=== PATIENT | male | born 1980 | race Caucasian/White ===

== ENCOUNTER 2019-05-18 09:40 | Emergency (ER) | payer BC ==
[2019-05-18] MEDS ORDERED: Ketorolac 30 MG/ML SDV IVPUSH ONE (10:06)
--- NOTE | 2019-05-18 10:11 | EDM.PDOC ---
ED HPI GENERAL MEDICAL PROBLEM - General Chief Complaint: Abdominal Pain Stated Complaint: RT TESTICLE PAIN Time Seen by Provider: 05/18/19 09:57 Source of Information: Reports: Patient History Limitations: Reports: No Limitations - History of Present Illness INITIAL COMMENTS - FREE TEXT/NARRATIVE: HISTORY AND PHYSICAL: History of present illness: Patient is a 38-year-old male who presents to the ED today with concern of right testicular pain. Patient states he has had a hernia of the right testicle since he was in high school which with time has slowly been getting more painful. Patient states the pain of the hernia has worsened over the past several months and the past few weeks now he states that it is now more bothersome to him and the pain periodically radiates into his right lower leg and abdomen. Patient denies any trauma or injury to the testicles. Patient denies any penile discharge. Patient denies any other symptoms or concerns. Patient denies fever, chills, chest pain, shortness of breath, or cough. Denies headache, neck stiff ness, change in vision, syncope, or near syncope. Denies nausea, vomiting, abdominal pain, diarrhea, constipation, or dysuria. Has not noted any blood in urine or stool. Patient has been eating and drinking appropriately. Review of systems: As per history of present illness and below otherwise all systems reviewed and negative. Past medical history: As per history of present illness and as reviewed below otherwise noncontributory. Surgical history: As per history of present illness and as reviewed below otherwise noncontributory. Social history: See social history for further information Family history: As per history of present illness and as reviewed below otherwise noncontributory. Physical exam: General: Patient is alert, oriented, and in no acute distress. Patient sitting comfortably on exam table. HEENT: Atraumatic, normocephalic, pupils equal and reactive bilaterally, negative for conjunctival pallor or scleral icterus, mucous membranes moist, TMs normal bilaterally, throat clear, neck supple, nontender, trachea midline. No drooling or trismus noted. No meningeal signs. No hot potato voice noted. Lungs: Clear to auscultation, breath sounds equal bilaterally, chest nontender. Heart: S1S2, regular rate and rhythm without overt murmur Abdomen: Soft, nondistended, nontender. Negative for masses or hepatosplenomegaly. Negative for costovertebral tenderness. Pelvis: Stable nontender. Genitourinary: No rashes, lesions, or penile drainage. Left and right testicle without masses or pain and possible small hernia of the right inguinal canal with tenderness of this area. Rectal: Deferred. Skin: Intact, warm, dry. No lesions or rashes noted. Extremities: Atraumatic, negative for cords or calf pain. Neurovascular unremarkable. Neuro: Awake, alert, oriented. Cranial nerves II through XII unremarkable. Cerebellum unremarkable. Motor and sensory unremarkable throughout. Exam nonfocal. Notes: Discussed importance for follow-up with general surgery as well as his primary care provider. Voices understanding and is agreeable to plan of care. Denies any further questions or concerns at this time. Diagnostics: CBC, CMP, UA, gonorrhea and chlamydia, Scrotum and contents, CT pelvis Therapeutics: Toradol Prescription: None Impression: Right inguinal hernia, reduced Plan: 1. You can alternate ibuprofen and Tylenol as directed for pain and discomfort. 2. Follow-up with general surgery as well as a primary care provider as discussed. Return to the ED as needed and as discussed. Definitive disposition and diagnosis as appropriate pending reevaluation and review of above. Right Lower Groin Pain Score (Numeric/FACES): 7 - Related Data Allergies Allergy/AdvReac Type Severity Reaction Status Date / Time No Known Allergies Allergy Verified 05/18/19 09:54 Home Meds: Home Meds . [No Known Home Meds] 05/18/19 [History] Past Medical History Gastrointestinal History: Reports: Other (See Below) Other Gastrointestinal History: hernia Social & Family History - Family History Family Medical History: Noncontributory - Tobacco Use Smoking Status *Q: Current Every Day Smoker Years of Tobacco use: 18 Packs/Tins Daily: 1 - Recreational Drug Use Recreational Drug Use: Yes Drug Use in Last 12 Months: No ED ROS GENERAL - Review of Systems Review Of Systems: Comprehensive ROS is negative, except as noted in HPI. ED EXAM, GENERAL - Physical Exam Exam: See Below (see dictation) Course - Vital Signs Last Recorded V/S: Last Vital Signs Temp 98.6 F 05/18/19 12:53 Pulse 63 05/18/19 12:53 Resp 15 05/18/19 12:53 BP 119/67 05/18/19 12:53 Pulse Ox 95 05/18/19 12:53 - Orders/Labs/Meds Orders: Active Orders 24 hr Category Date Time Status CHLAMYDIA AND GONORRHEA BY TMA Stat Lab 05/18/19 11:48 Received Labs: Laboratory Tests 05/18/19 05/18/19 05/18/19 Range/Units 10:14 10:14 10:14 WBC 5.45 (4.0-11.0) K/uL RBC 4.84 (4.50-5.90) M/uL Hgb 14.5 (13.0-17.0) g/dL Hct 42.4 (38.0-50.0) % MCV 87.6 (80.0-98.0) fL MCH 30.0 (27.0-32.0) pg MCHC 34.2 (31.0-37.0) g/dL RDW Std Deviation 41.2 (28.0-62.0) fl RDW Coeff of Jovon 13 (11.0-15.0) % Plt Count 259 (150-400) K/uL MPV 10.60 (7.40-12.00) fL Neut % (Auto) 48.6 (48.0-80.0) % Lymph % (Auto) 38.0 (16.0-40.0) % [place] % (Auto) 11.7 (0.0-15.0) % Eos % (Auto) 1.5 (0.0-7.0) % Baso % (Auto) 0.2 (0.0-1.5) % Neut # (Auto) 2.7 (1.4-5.7) K/uL Lymph # (Auto) 2.1 (0.6-2.4) K/uL [place] # (Auto) 0.6 (0.0-0.8) K/uL Eos # (Auto) 0.1 (0.0-0.7) K/uL Baso # (Auto) 0.0 (0.0-0.1) K/uL Nucleated RBC % 0.0 /100WBC Nucleated RBCs # 0 K/uL Lactate 1.0 (0.20-2.00) mmol/L Sodium 141 (136-148) mmol/L Potassium 3.8 (3.5-5.1) mmol/L Chloride 104 (98-107) mmol/L Carbon Dioxide 27.3 (21.0-32.0) mmol/L BUN 11 (7.0-18.0) mg/dL Creatinine 0.8 (0.8-1.3) mg/dL Est Cr Clr Drug Dosing 118.75 mL/min Estimated GFR (MDRD) > 60.0 ml/min Glucose 91 (74-106) mg/dL Calcium 8.7 (8.5-10.1) mg/dL Total Bilirubin 0.4 (0.2-1.0) mg/dL AST 28 (15-37) IU/L ALT 35 (14-63) IU/L Alkaline Phosphatase 91 (46-116) U/L Total Protein 7.2 (6.4-8.2) g/dL Albumin 3.9 (3.4-5.0) g/dL Globulin 3.3 (2.6-4.0) g/dL Albumin/Globulin Ratio 1.2 (0.9-1.6) Urine Color Urine Appearance Urine pH (5.0-8.0) Ur Specific Ridott (1.001-1.035) Urine Protein (NEGATIVE) mg/dL Urine Glucose (UA) (NEGATIVE) mg/dL Urine Ketones (NEGATIVE) mg/dL Urine Occult Blood (NEGATIVE) Urine Nitrite (NEGATIVE) Urine Bilirubin (NEGATIVE) Urine Urobilinogen (<2.0) EU/dL Ur Leukocyte Esterase (NEGATIVE) 05/18/19 Range/Units 11:48 WBC (4.0-11.0) K/uL RBC (4.50-5.90) M/uL Hgb (13.0-17.0) g/dL Hct (38.0-50.0) % MCV (80.0-98.0) fL MCH (27.0-32.0) pg MCHC (31.0-37.0) g/dL RDW Std Deviation (28.0-62.0) fl RDW Coeff of Jovon (11.0-15.0) % Plt Count (150-400) K/uL MPV (7.40-12.00) fL Neut % (Auto) (48.0-80.0) % Lymph % (Auto) (16.0-40.0) % [place] % (Auto) (0.0-15.0) % Eos % (Auto) (0.0-7.0) % Baso % (Auto) (0.0-1.5) % Neut # (Auto) (1.4-5.7) K/uL Lymph # (Auto) (0.6-2.4) K/uL [place] # (Auto) (0.0-0.8) K/uL Eos # (Auto) (0.0-0.7) K/uL Baso # (Auto) (0.0-0.1) K/uL Nucleated RBC % /100WBC Nucleated RBCs # K/uL Lactate (0.20-2.00) mmol/L Sodium (136-148) mmol/L Potassium (3.5-5.1) mmol/L Chloride (98-107) mmol/L Carbon Dioxide (21.0-32.0) mmol/L BUN (7.0-18.0) mg/dL Creatinine (0.8-1.3) mg/dL Est Cr Clr Drug Dosing mL/min Estimated GFR (MDRD) ml/min Glucose (74-106) mg/dL Calcium (8.5-10.1) mg/dL Total Bilirubin (0.2-1.0) mg/dL AST (15-37) IU/L ALT (14-63) IU/L Alkaline Phosphatase (46-116) U/L Total Protein (6.4-8.2) g/dL Albumin (3.4-5.0) g/dL Globulin (2.6-4.0) g/dL Albumin/Globulin Ratio (0.9-1.6) Urine Color YELLOW Urine Appearance CLEAR Urine pH 6.0 (5.0-8.0) Ur Specific Ridott 1.010 (1.001-1.035) Urine Protein NEGATIVE (NEGATIVE) mg/dL Urine Glucose (UA) NEGATIVE (NEGATIVE) mg/dL Urine Ketones NEGATIVE (NEGATIVE) mg/dL Urine Occult Blood NEGATIVE (NEGATIVE) Urine Nitrite NEGATIVE (NEGATIVE) Urine Bilirubin NEGATIVE (NEGATIVE) Urine Urobilinogen 0.2 (<2.0) EU/dL Ur Leukocyte Esterase NEGATIVE (NEGATIVE) Meds: Medications Discontinued Medications Generic Name Dose Route Start Last Admin Trade Name Freq PRN Reason Stop Dose Admin Iopamidol 100 ml 05/18/19 11:41 05/18/19 11:41 Isovue Multipack-370 (76%) IVPUSH 05/18/19 11:42 100 ml ONETIME STA Administration Ketorolac Tromethamine 30 mg 05/18/19 10:06 05/18/19 10:20 Toradol IVPUSH 05/18/19 10:07 30 mg ONETIME ONE Administration Departure - Departure Time of Disposition: 13:13 Disposition: Home, Self-Care 01 Clinical Impression: Inguinal hernia, right - Discharge Information Referrals: PCP,None [Primary Care Provider] - Forms: ED Department Discharge Additional Instructions: The following information is given to patients seen in the emergency department who are being discharged to home. This information is to outline your options for follow-up care. We provide all patients seen in our emergency department with a follow-up referral. The need for follow-up, as well as the timing and circumstances, are variable depending upon the specifics of your emergency department visit. If you don't have a primary care physician on staff, we will provide you with a referral. We always advise you to contact your personal physician following an emergency department visit to inform them of the circumstance of the visit and for follow-up with them and/or the need for any referrals to a consulting specialist. The emergency department will also refer you to a specialist when appropriate. This referral assures that you have the opportunity for follow-up care with a specialist. All of these measure are taken in an effort to provide you with optimal care, which includes your follow-up. Under all circumstances we always encourage you to contact your private physician who remains a resource for coordinating your care. When calling for follow-up care, please make the office aware that this follow-up is from your recent emergency room visit. If for any reason you are refused follow-up, please contact the [facility] Emergency Department at and asked to speak to the emergency department charge nurse. [facility] [address] [address] [facility] [address] [place] [address] [facility] - General Surgery Professional Building [address] [place] [address], [address] [place] [address] 1. You can alternate ibuprofen and Tylenol as directed for pain and discomfort. 2. Follow-up with general surgery as well as a primary care provider as discussed. Return to the ED as needed and as discussed. Sepsis Event Note - Evaluation Sepsis Screening Result: No Definite Risk - Focused Exam Vital Signs: Vital Signs Temp Pulse Resp BP Pulse Ox 05/18/19 12:53 98.6 F 63 15 119/67 95 05/18/19 09:50 98.0 F 75 18 128/69 96 Date Exam was Performed: 05/18/19 Time Exam was Performed: 13:10 - My Orders Last 24 Hours: My Active Orders 05/18/19 11:48 CHLAMYDIA AND GONORRHEA BY TMA Stat - Assessment/Plan Last 24 Hours: My Active Orders 05/18/19 11:48 CHLAMYDIA AND GONORRHEA BY TMA Stat
[2019-05-18 10:58] LABS: BLOOD UREA NITROGEN,BUN 11 mg/dL (7.0-18.0); CARBON DIOXIDE,CO2 27.3 mmol/L (21.0-32.0); CHLORIDE,CL 104 mmol/L (98-107); GLUCOSE RANDOM 91 mg/dL (74-106); POTASSIUM,K 3.8 mmol/L (3.5-5.1); SODIUM,NA 141 mmol/L (136-148)
[2019-05-18] MEDS ORDERED: Iopamidol 755 MG/ML 500 ML Multipack Bottle IVPUSH STA (11:41)
--- NOTE | 2019-05-18 12:37 | CT ---
EXAM DATE: 05/18/19 PATIENT'S AGE: 38 CT pelvis Technique: Multiple axial sections were obtained from above the iliac crests inferiorly through the pubic symphysis. Intravenous contrast was utilized. No oral contrast has been given. Findings: Small fat-containing umbilical hernia is noted. No inguinal hernia is identified. No pelvic mass or adenopathy is seen. No inflammatory change is noted. Appendix is normal. Bone window settings were reviewed which shows vacuum phenomena within the disc at L4-5 and L5-S1. No acute osseous finding is seen. Impression: 1. Small fat-containing umbilical hernia. No inguinal hernia is noted. 2. Other findings as noted above which appear nonacute. Diagnostic code #2 This report was dictated in [place] Standard Time Report Signed by Proxy. [facility] HOSPITALBrian
--- NOTE | 2019-05-18 12:59 | US ---
EXAM DATE: 05/18/19 PATIENT'S AGE: 38 Testicular ultrasound: Multiple real-time images of the testicles were obtained. Testicles have a homogeneous ultrasound appearance. Both arterial and venous blood flow are seen within the testicles. Small and incomplete hernia is seen slightly projecting into the abdominal wall within the right inguinal region. This is noted on Valsalva which is presumably the reason why this is not seen on CT exam. Small left-sided hydrocele is seen. Small right-sided hydrocele is also noted. No additional abnormality is appreciated. Impression: 1. Small and incomplete hernia is seen on Valsalva projecting into the abdominal wall most likely inguinal in location. As mentioned above, since this is seen on Valsalva this is most likely the reason it is not visualized on CT exam. 2. Minimal bilateral hydroceles. 3. No additional abnormality seen on testicular ultrasound exam. Diagnostic code #3 This report was dictated in [place] Standard Time Report Signed by Proxy. [place]
== END 2019-05-18 13:22 | disposition home or self-care (01) ==
LOC: MW.ED 09:40
DX: K40.90 Unilateral inguinal hernia, without obstruction or gangrene, not specified as recurrent (principal); F17.210 Nicotine dependence, cigarettes, uncomplicated
CPT/HCPCS: 36415; 72193; 76870; 80053; 81003; 83605; 85025; 87491; 87591; 93976; 99284; J1885; Q9967

== ENCOUNTER 2023-01-15 17:28 | Emergency (ER) | payer SELFPAY | END 2023-01-15 18:37 | disposition left against medical advice (07) | LOC: MW.ED 17:28 | DX: Z53.21 Procedure and treatment not carried out due to patient leaving prior to being seen by health care provider (principal) ==

== ENCOUNTER 2023-03-21 17:52 | Emergency (ER) | payer SELFPAY ==
[2023-03-21] MEDS ORDERED: Lidocaine 4% 1 each Patch TOP PRN (17:59)
== END 2023-03-21 20:34 ==
LOC: MW.ED 17:52
DX: T40.2X1A Poisoning by other opioids, accidental (unintentional), initial encounter (principal); F11.129 Opioid abuse with intoxication, unspecified
CPT/HCPCS: 71045; 93005; 99284; A9270; 93010; 99283

== ENCOUNTER 2023-10-23 13:38 | Emergency (ER) | payer MEDICAID | END 2023-10-23 15:04 | LOC: MW.ED 13:38 | DX: Z02.89 Encounter for other administrative examinations (principal); Z86.59 Personal history of other mental and behavioral disorders | CPT/HCPCS: 99283 ==